=== PATIENT | male | born 1995 | race Caucasian/White ===

== ENCOUNTER 2022-02-14 19:24 | Emergency (ER) | payer OTHER ==
[~2022-02-14] VITALS: Ht 167.6 cm; Wt 64.0 kg
[2022-02-14] MEDS ORDERED: DIPHENHYDRAMINE 50MG/ML VIAL IM STA (20:32)
[2022-02-14] MEDS ORDERED: SODIUM CHLORIDE 0.9% 1,000 ML IV ONE (20:45)
[2022-02-14] MEDS ORDERED: MIDAZOLAM HCL 2 MG/2 ML VIAL IM ONE (20:45)
[2022-02-14 23:03] LABS: BASOPHILS % 0.1 % (0.0-2.0); EOSINOPHILS % 0.2 % (0.0-5.0); HEMOGLOBIN. 12.6 g/dL (14.0-18.0); LYMPHOCYTES % 9.8 % (20.0-50.0); MEAN CORPUSCULAR HEMOGLOBIN 28.8 pg (28.0-32.0); MEAN CORPUSCULAR VOLUME 86.8 fL (80.0-94.0); MEAN PLATELET VOLUME 7.5 fl (7.4-10.4); MONOCYTES % 6.5 % (2.0-8.0); NEUTROPHILS % 83.4 % (40.0-76.0); PLATELET 260 x1000/uL (130-400); RED BLOOD CELL COUNT 4.37 mill/uL (4.7-6.1); RED CELL DISTRIBUTION WIDTH 14.2 % (11.6-14.6)
[2022-02-14 23:08] LABS: CHLORIDE 108 mEq/L (98-107)
[2022-02-14 23:16] LABS: ETHANOL BLOOD < 10 mg/dL
[2022-02-15 00:44] LABS: *AMPHETAMINES SCREEN URINE PRESUMTIVE POSITIVE (NEGATIVE); *BARBITURATES SCREEN URINE NEGATIVE (NEGATIVE); *BENZODIAZEPINES SCREEN URINE PRESUMTIVE POSITIVE (NEGATIVE); *COCAINE SCREEN URINE NEGATIVE (NEGATIVE); CANNABINOID URINE SCREEN NEGATIVE (NEGATIVE); METHADONE URINE SCREEN NEGATIVE (NEGATIVE); OPIATES URINE SCREEN NEGATIVE (NEGATIVE); PHENCYCLIDINE URINE SCREEN NEGATIVE (NEGATIVE)
[2022-02-15 05:28] VITALS: BP 129/79
[2022-02-15] MEDS ORDERED: HALOPERIDOL LACTATE 5MG/ML VIAL IM ONE (05:30)
== END 2022-02-15 08:16 | disposition home or self-care (01) ==
LOC: ER 19:24
DX: T43.621A Poisoning by amphetamines, accidental (unintentional), initial encounter (principal); R41.82 Altered mental status, unspecified; R45.1 Restlessness and agitation; R00.0 Tachycardia, unspecified; R09.02 Hypoxemia; R03.0 Elevated blood-pressure reading, without diagnosis of hypertension; F16.10 Hallucinogen abuse, uncomplicated; F15.129 Other stimulant abuse with intoxication, unspecified; F13.10 Sedative, hypnotic or anxiolytic abuse, uncomplicated; Y92.480 Sidewalk as the place of occurrence of the external cause
CPT/HCPCS: 36415; 80053; 80305; 80307; 80320; 80329; 85025; 93005; 96360; 96372; 99285; J1200; J1630; J2250; J7030; G0480